=== PATIENT | male | born 1985 | race Hispanic/Latino ===

== ENCOUNTER 2022-02-14 14:04 | Emergency (ER) | payer SELFPAY ==
[~2022-02-14] VITALS: Ht 160 cm; Wt 106.6 kg
[2022-02-14] MEDS ORDERED: IBUPROFEN 600 MG TAB PO STA (14:27)
[2022-02-14] MEDS ORDERED: IBUPROFEN 600 MG TAB ONE (15:10)
[2022-02-14] MEDS ORDERED: IBUPROFEN600 MG PO (15:11)
[2022-02-14] MEDS ORDERED: Morphine 4mg INJECTION 4 MG/ML INJ IM ONE (15:30)
[2022-02-14] MEDS ORDERED: ULTRAM 50MG50 MG PO (15:32)
[2022-02-14] MEDS ORDERED: ONDANSETRON HCL 4 MG ORAL DISINTEGRATING TAB PO ONE (15:45)
== END 2022-02-14 15:55 | disposition home or self-care (01) ==
LOC: FSED 14:11
DX: S52.572A Other intraarticular fracture of lower end of left radius, initial encounter for closed fracture (principal); Y93.39 Activity, other involving climbing, rappelling and jumping off; Y99.0 Civilian activity done for income or pay
CPT/HCPCS: 29125; 73080; 73090; 73110; 99283; J2270; Q0162